=== PATIENT | male | born 1960 | race Caucasian/White ===

== ENCOUNTER 2022-09-13 09:27 | Outpatient (RCR) | payer MEDICAID, SELFPAY ==
[2022-09-13 10:25] LABS: Creatinine* 1.9 mg/dL (0.5-1.5); Est. Creatinine Clearance* 44.39; Estimated Glomerular Filt Rate 39 ml/min
--- NOTE | 2022-09-27 15:30 | ONC.NURNOTE ---
Dx: Malignant neoplasm of bladder
== END 2023-03-12 23:59 | disposition home or self-care (01) ==
LOC: CCIC 09:27
PROVIDERS: Visit Provider Internal Medicine
DX: C67.9 Malignant neoplasm of bladder, unspecified (principal)
CPT/HCPCS: 36415; 36592; 82565; 84153

== ENCOUNTER 2023-02-01 00:12 | Outpatient (CLI) | payer MEDICAID, SELFPAY | END 2023-02-01 00:13 | disposition home or self-care (01) | LOC: AMB 23:09 | PROVIDERS: Visit Provider Emergency Medicine | DX: R06.09 Other forms of dyspnea (principal) | CPT/HCPCS: A0425; A0427 ==

== ENCOUNTER 2024-01-21 19:05 | Outpatient (CLI) | payer MEDICARE, BC, SELFPAY | END 2024-01-21 19:06 | disposition home or self-care (01) | LOC: AMB 02-12 06:04 | PROVIDERS: Visit Provider Emergency Medicine Emergency Medical Services | DX: R09.02 Hypoxemia (principal); R53.83 Other fatigue | CPT/HCPCS: A0425; A0427 ==